=== PATIENT | female | born 1990 | race Caucasian/White ===

== ENCOUNTER 2017-10-06 | Emergency (ER) | payer OTHER ==
--- NOTE | 2017-10-06 03:27 | ER ---
Nurse's Notes [facility] Name: Pretty Lozada Age: 27 yrs Sex: Female : 1990 Arrival Date: 10/06/2017 Time: 03:06 Bed 17 Private MD: Diagnosis: Sciatica, left side Presentation: 10/06 03:19 Presenting complaint: Patient states: Her left hip started hurting a day and a half ea ago, denies falling, reports she was moving this weekend and had to pack and lift boxes reports she thinks she might have hurt herself then. Transition of care: patient was not received from another setting of care. Onset of symptoms was October 06, 2017. Care prior to arrival: None. 03:19 Method Of Arrival: Ambulatory ea 03:19 Acuity: RADHA 5 ea Triage Assessment: 03:19 General: Appears in no apparent distress. Behavior is calm, cooperative, appropriate ea for age. Pain: Complains of pain in left hip Pain currently is 7 out of 10 on a pain scale. Quality of pain is described as aching, Pain began 1 day ago. Is continuous. EENT: No deficits noted. Neuro: Level of Consciousness is awake, alert, obeys commands, Oriented to person, place, time, situation. Cardiovascular: Heart tones present Patient's skin is warm and dry. Respiratory: Airway is patent Respiratory effort is even, unlabored, Respiratory pattern is regular, symmetrical. GI: No signs and/or symptoms were reported involving the gastrointestinal system. : No signs and/or symptoms were reported regarding the genitourinary system. Derm: Skin is pink, warm \T\ dry. 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 - Social history:: Smoking status: Patient/guardian denies using tobacco. Screenin:25 Abuse screen: Denies threats or abuse. Nutritional screening: No deficits noted. ea Tuberculosis screening: No symptoms or risk factors identified. Fall Risk None identified. Assessment: 03:35 Reassessment: Patient and/or family updated on plan of care and expected duration. Pain ea level reassessed. Patient is alert, oriented x 3, equal unlabored respirations, skin warm/dry/pink. Discharge instructions given to patient, verbalized the understanding of instruction. Vital Signs: 03:24 BP 119 / 77; Pulse 91; Resp 18; Temp 97.3(TE); Pulse Ox 98% on R/A; Weight 146.96 kg; ea Height 5 ft. 9 in. (175.26 cm); Pain 7/10; 03:24 Body Mass Index 47.85 (146.96 kg, 175.26 cm) ea ED Course: 03:06 Patient arrived in ED. ds1 03:13 Avinash Lira MD is Attending Physician. gs 03:18 Angelica Elizalde RN is Primary Nurse. ea 03:21 Triage completed. ea 03:26 Slava Santillan MD is Referral Physician. gs 03:26 Patient has correct armband on for positive identification. Bed in low position. Call ea light in reach. Side rails up X 1. 03:26 Arm band placed on right wrist. ea 03:36 No provider procedures requiring assistance completed. Patient did not have IV access ea during this emergency room visit. Administered Medications: No medications were administered Outcome: 03:26 Discharge ordered by . gs 03:36 Discharged to home ambulatory. ea 03:36 Condition: unchanged 03:36 Discharge instructions given to patient, Instructed on discharge instructions, follow up and referral plans. medication usage, Demonstrated understanding of instructions, follow-up care, medications, Prescriptions given X 1. 03:37 Patient left the ED. ea Signatures: My Alves ds1 Angelica Elizalde, Avinash Do RN, ea, MD MD
--- NOTE | 2017-10-06 03:27 | EDPHYS ---
Physician Documentation [facility] Name: Pretty Lozada Age: 27 yrs Sex: Female : 1990 Arrival Date: 10/06/2017 Time: 03:06 Bed 17 Private MD: ED Physician Avinash Lira HPI: 10/06 03:24 This 27 yrs old Female presents to ER via Ambulatory with complaints of Hip gs Pain. 03:24 The patient or guardian reports pain. sustained from unknown reason, There is no gs obvious deformity, The patient is able to self ambulate. The patient is able to bear their full body weight. The complaints affect the left gluteus jamie. Onset: The symptoms/episode began/occurred 2 day(s) ago, and became persistent. Modifying factors: the symptoms are aggravated by any movement. Associated signs and symptoms: Pertinent negatives: dysuria, incontinence, weakness. Severity of symptoms: At their worst the symptoms were moderate, in the emergency department the symptoms are unchanged. The patient has not experienced similar symptoms in the past. 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 - Social history:: Smoking status: Patient/guardian denies using tobacco. ROS: 03:24 All other systems are negative. gs Exam: 03:24 Head/Face: Normocephalic, atraumatic. Eyes: Pupils equal round and reactive to light, gs extra-ocular motions intact. Lids and lashes normal. Conjunctiva and sclera are non-icteric and not injected. Cornea within normal limits. Periorbital areas with no swelling, redness, or edema. ENT: Nares patent. No nasal discharge, no septal abnormalities noted. Tympanic membranes are normal and external auditory canals are clear. Oropharynx with no redness, swelling, or masses, exudates, or evidence of obstruction, uvula midline. Mucous membranes moist. Neck: Trachea midline, no thyromegaly or masses palpated, and no cervical lymphadenopathy. Supple, full range of motion without nuchal rigidity, or vertebral point tenderness. No Meningismus. Chest/axilla: Normal chest wall appearance and motion. Nontender with no deformity. No lesions are appreciated. Cardiovascular: Regular rate and rhythm with a normal S1 and S2. No gallops, murmurs, or rubs. Normal PMI, no JVD. No pulse deficits. Respiratory: Lungs have equal breath sounds bilaterally, clear to auscultation and percussion. No rales, rhonchi or wheezes noted. No increased work of breathing, no retractions or nasal flaring. Abdomen/GI: Soft, non-tender, with normal bowel sounds. No distension or tympany. No guarding or rebound. No evidence of tenderness throughout. Back: No spinal tenderness. No costovertebral tenderness. Full range of motion. Skin: Warm, dry with normal turgor. Normal color with no rashes, no lesions, and no evidence of cellulitis. Neuro: Awake and alert, GCS 15, oriented to person, place, time, and situation. Cranial nerves II-XII grossly intact. Motor strength 5/5 in all extremities. Sensory grossly intact. Cerebellar exam normal. Normal gait. 03:24 Constitutional: The patient appears alert, awake. 03:24 Musculoskeletal/extremity: Extremities: noted in the left gluteus jamie: tenderness, left sciatic notch reproduces pain, ROM: no acute changes, Circulation is intact in all extremities. Vital Signs: 03:24 BP 119 / 77; Pulse 91; Resp 18; Temp 97.3(TE); Pulse Ox 98% on R/A; Weight 146.96 kg; ea Height 5 ft. 9 in. (175.26 cm); Pain 7/10; 03:24 Body Mass Index 47.85 (146.96 kg, 175.26 cm) ea MDM: 03:22 Patient medically screened. gs 03:24 Differential diagnosis: arthritis, strain, sciatica. Data reviewed: vital signs, nurses gs notes. Administered Medications: No medications were administered Disposition: 10/06/17 03:26 Discharged to Home. Impression: Sciatica, left side. - Condition is Stable. - Discharge Instructions: Sciatica, [id number]. - Prescriptions for Naprosyn 500 mg Oral Tablet - take 1 tablet by ORAL route 2 times per day As needed take with food; 30 tablet. Prednisone 20 mg Oral Tablet - take 1 tablet by ORAL route once daily for 5 days; 5 tablet. - Medication Reconciliation Form, Thank You Letter, Antibiotic Education, Prescription Opioid Use form. - Follow up: Slava Santillan MD; When: 2 - 3 days; Reason: Re-evaluation by your physician. Signatures: Angelica Elizalde, RN RN Avinash Wan MD MD
== END 2017-10-06 03:37 | disposition home or self-care (01) ==
DX: M54.32 Sciatica, left side (principal)
CPT/HCPCS: 99282